=== PATIENT | female | born 1945 | race Two or more races ===

== ENCOUNTER 2025-03-14 09:40 | Emergency (ER) | payer MEDICARE, SELFPAY ==
--- NOTE | 2025-03-14 09:50 | EKG_ITS ---
[facility] Test Date: 2025-03-14 Pat Name: HEATHER CRUZ Department: Room: - Gender: Female Management Planner: : 1945 Requested By: Leonard Bardales (KENNETH) Order Number: [id number] Reading MD: Leonard Bardales (RENEWALS SPECIALIST) Measurements Intervals Badger Rate: 98 P: 31 FL: 158 QRS: 83 QRSD: 127 T: 53 QT: 381 QTc: 487 Interpretive Statements SINUS RHYTHM WITH OCCASIONAL VENTRICULAR PREMATURE COMPLEXES WITH OCCASIONAL SUPRAVENTRICULAR PREMATURE COMPLEXES POSSIBLE RIGHT VENTRICULAR CONDUCTION DELAY [RSR (QR) IN V1/V2] MODERATE ST DEPRESSION [0.05+ mV ST DEPRESSION] No previous ECG available for comparison /[id number]/[email or web address]/[id number].pdf
[2025-03-14 09:55] VITALS: BP 159/92; PULSE 99; TEMP 36.9; O2SAT 93; BMI 32.8
--- NOTE | 2025-03-14 10:10 | XR_ITS ---
Examination: AP chest single view TECHNIQUE: AP portable upright chest single view Date and time: March 14, 2025 1027 hours Comparison November 12, 2013 INDICATIONS: Diagnosis COPD or shortness of breath today. FINDINGS: Moderate hyperexpansion Significant pneumonia left base Normal heart size Prominent osteopenia IMPRESSION: Significant pneumonia lipase
--- NOTE | 2025-03-14 10:10 | PD.EDRME ---
Rapid Medical Screening Exam RME Arrival date/time: 03/14/25 09:40 79-year-old female with history of COPD presents the emergency department for complaints of shortness of breath and chest pain Chief Complaint: Shortness of Breath/Dyspnea Vital signs: Vital Signs Temperature 98.5 F 03/14/25 09:55 Pulse Rate 99 03/14/25 09:55 Blood Pressure 159/92 H 03/14/25 09:55 Pulse Oximetry (%) 93 L 03/14/25 09:55 Oxygen Delivery Method Room Air 03/14/25 09:55
[2025-03-14 10:44] LABS: Basophils # (Auto) 0.1 Thou/mm3 (0.0-0.2); Basophils % (Auto) 1 % (0-2.5); Eosinophils # (Auto) 0.1 Thou/mm3 (0.0-0.5); Eosinophils % (Auto) 1 % (0-10); Hematocrit 38.3 % (36.0-46.0); Hemoglobin 12.7 g/dL (12.0-16.0); Immature Granulocytes % (Auto) 3 % (0-0); Immature Granulocytes Auto 0.28 Thou/mm3 (0.00-0.00); Lymphocytes # (Auto) 1.5 Thou/mm3 (1.0-4.8); Lymphocytes % (Auto) 14 % (10-50); Mean Corpuscular HGB Conc 33.2 g/dl (31.0-37.0); Mean Corpuscular Hemoglobin 30.5 pg (25.0-35.0); Mean Corpuscular Volume 92 fL (80-100); Monocytes # (Auto) 1.6 Thou/mm3 (0.0-0.8); Monocytes % (Auto) 15 % (0-12); Neutrophils # (Auto) 7.3 Thou/mm3 (1.8-7.7); Neutrophils % (Auto) 67 % (37-80); Nucleated Red Blood Cell % 0 /100 WBC (0); Platelet Count 209 Thou/mm3 (140-440); RDW Standard Deviation 50.8 fL (36.4-46.3); Red Blood Count 4.16 Miln/mm3 (4.00-5.20); White Blood Count 10.7 Thou/mm3 (3.6-11.0)
[2025-03-14 11:01] LABS: B-Type Natriuretic Peptide 64 pg/mL (0-100)
[2025-03-14 11:04] LABS: Alanine Aminotransferase 25 U/L (10-49); Albumin, Serum 4.5 gm/dL (3.4-4.8); Albumin/Globulin Ratio 1.3 (1.2-2.2); Alkaline Phosphatase 77 U/L (46-116); Anion Gap 12 (7-16); Aspartate Amino Transferase 24 U/L (0-34); BUN/Creatinine Ratio 13 Ratio (12-20); Bilirubin,Total 1.9 mg/dL (0.3-1.2); Blood Urea Nitrogen 10 mg/dL (9-23); Calcium 9.9 mg/dL (8.3-10.6); Calcium (Corrected) 9.9 mg/dL (8.5-10.1); Carbon Dioxide 20.8 mMol/L (20.0-31.0); Chloride 102 mMol/L (98-107); Creatinine (Component) 0.8 mg/dL (0.6-1.3); Estimated Creatinine Clearance 58.7 mL/min (>60); Globulin 3.5 gm/dL (2.3-3.5); Glucose 127 mg/dL (74-106); Osmolality,Calculated 271 (275-295); Potassium 3.6 mMol/L (3.4-5.1); Sodium 135 mMol/L (136-145); Troponin I < 0.020 ng/mL (0.0-0.045); eGFR > 60 See Note
[2025-03-14 11:28] LABS: INR 1.1 (0.9-1.3); Partial Thromboplastin Time 36.2 Seconds (22.0-36.0); Prothrombin Time 12.4 Seconds (9.0-12.2)
[2025-03-14 13:33] VITALS: BP 156/82; PULSE 101; RESP 19; TEMP 36.9; O2SAT 96
[2025-03-14 13:39] VITALS: BP 169/123; PULSE 91; RESP 24; TEMP 36.9; O2SAT 96
--- NOTE | 2025-03-14 13:47 | EDNOTE_ITS ---
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 Patient states she denies any fever, states the cough is both day and nighttime. During the course of the exam the patient exhibited a coarse wet nonproductive cough. Patient has a history of smoking but quit decades ago. Patient currently resides in [place] is visiting her family members here. Patient has a history of hypothyroidism and hypertension. Currently chest pain-free. RME / HPI RME / HPI narrative: 03/14/25 09:40 79-year-old female with history of COPD presents the emergency department for complaints of shortness of breath and chest pain Related Data Previous Rx's ?Medication ?Instructions ?Recorded levofloxacin 750 mg tablet 750 mg PO Q24H 10 days #10 tabs 03/14/25 prednisone 20 mg tablet See Taper PO BID 3 days #6 t abs 03/14/25 Allergies Allergy/AdvReac Type Severity Reaction Status Date / Time codeine Allergy Unknown Verified 03/14/25 09:44 Penicillins Allergy Unknown Verified 03/14/25 09:45 Review of Systems Review of Systems Narrative Review of Systems: GEN: No fever, no chills, no weight loss EYES: No discharge, no visual changes, no pain HEENT: No ear pain, no congestion, no sore throat PULM: + shortness of breath, + cough, no congestion CV: + chest pain, no dyspnea on exertion, no palpitations GI: No nausea, no vomiting, no diarrhea, no pain, no constipation : No frequency, no urgency, no dysuria MUSC/SKEL: No joint pain, no back pain SKIN: No rash PSYCH: No hallucinations, no depression HEME/LYMPH: No easy bleeding or bruising tendencies NEURO: No weakness, no headache Past Medical History Past Medical History CARDIAC: Positive Hypertension; Negative Congestive Heart Failure RESPIRATORY: Positive Chronic Obstructive Pulmonary Disease (COPD) GENITOURINARY: Negative Renal Disease ENDOCRINE: Positive Hypothyroidism; Negative Diabetes Mellitus Type 1 or Diabetes Mellitus Type 2 OTHER HISTORY: Positive Blood Transfusions Social History SMOKING STATUS: Never smoker ED Exam Narrative Physical exam: [General: Obese not in any acute distress Head normocephalic HEENT: Within acceptable limits Neck is supple nontender Chest equal chest rise nontender to palpation Respiratory: Expiratory crackles auscultated in the left lateral bases. Clear in the upper lobes. No wheezing CV: Rate rhythm is regular no murmurs rubs or clicks Abdomen is distended secondary to body habitus soft nontender no masses positive bowel sounds all 4 quadrants Back: No CVA tenderness no spinous process tenderness from cervical spine thoracic and lumbar spine Skin: Intact no petechiae rash induration ulceration or crepitus Extremities: Moving all extremity against resistance cap refill less than 2 seconds neurosensory intact. No lower extremity edema. Neuro: Awake alert oriented x3 Glascow coma 15 no focal deficits] Course Course Course Narrative: Reassessment at 1452, the patient is maintaining oxygen saturations of 92% or greater while asleep on room air patient be discharged home with pneumonia started on Levaquin and steroids. Quality Measures none Orders Category Date Time Status Bedside COVID-19 Antigen Test NOW Care 03/14/25 10:13 Active Bedside Influenza A&B Antigen Test NOW Care 03/14/25 10:13 Completed EKG (ED ONLY) *Do not use* NOW Care 03/14/25 09:50 Completed Insert IV NOW Care 03/14/25 13:55 Completed EKG (ED Only) Stat Exams 03/14/25 09:50 Draft XR chest 2V Stat Exams 03/14/25 10:10 Completed B-Type Natriuretic Peptide Stat Lab 03/14/25 10:20 Completed CBC Stat Lab 03/14/25 10:20 Completed Comprehensive Metabolic Panel Stat Lab 03/14/25 10:20 Completed Magnesium Stat Lab 03/14/25 10:20 Completed Partial Thromboplastin Time Stat Lab 03/14/25 10:20 Completed Prothrombin Time with INR Stat Lab 03/14/25 10:20 Completed Thyroid Stimulating Hormone Stat Lab 03/14/25 10:20 Completed Troponin I Stat Lab 03/14/25 10:20 Completed Albuterol/Ipratr Rt Maral [Duoneb Rt Maral] Med 03/14/25 13:39 Discontinued 3 ml INH X1 ONE cefTRIAXone/D5w 1gm IV premix [Rocephin/D5w 1gm IV Med 03/14/25 13:40 Discontinued premix] 1 gm in 50 ml IV X1 hydrALAZINE INJ [Apresoline Inj] Med 03/14/25 13:42 Discontinued 10 mg IVP X1 ONE Vital Signs Vital signs: Vital Signs Temperature 98.5 F 03/14/25 09:55 Pulse Rate 99 03/14/25 09:55 Blood Pressure 159/92 H 03/14/25 09:55 Pulse Oximetry (%) 93 L 03/14/25 09:55 Oxygen Delivery Method Room Air 03/14/25 09:55 Discharge Plan Plan Patient Disposition: HOME (Self Care) Patient condition on transfer: Stable Prescriptions/Referrals Prescriptions/Med Rec: New levofloxacin 750 mg tablet 750 mg PO Q24H 10 Days Qty: 10 0RF prednisone 20 mg tablet See Taper PO BID 3 Days Qty: 6 0RF Taper: Prednisone Taper 20 mg DAILY for 2 Days and 0 Hour 10 mg DAILY for 2 Days and 0 Hour 5 mg DAILY for 7 Days and 0 Hour Referrals: NAKIA VICTOR [Other] - In 1 week Problem List Clinical Impression: Community acquired pneumonia Patient/Caregiver Discharge Instructions Education Materials: Preventing Pneumonia, Treating Pneumonia Print Language: Nepalese Stand Alone Forms: Jolynn Award Info., Patient Portal Info Letter, Work/School Release 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 Lab Interpretation Labs: interpreted by me Lab(s) interpretation(s): CBC showed no acute leukocytosis anemia thrombocytopenia Coags show PT of 12.4 INR 1.1 PTT of 36.2 CMP shows sodium 135 glucose 127 no other electrolyte imbalances renal impairment. T. bili at 1.9 no transaminitis's. Troponin is negative BNP is within acceptable limits Imaging Imaging interpretation: interpreted by me Provider imaging interpretation(s): Chest x-ray shows a left lower pneumonia. Medication Administration(s) none Medication Administration History Discontinued Medications Albuterol/Ipratropium (Albuterol/Ipratropium (Duoneb) Rt Maral 3 Ml Nebu) 3 ml INH X1 ONE Stop: 03/14/25 13:40 Last Admin: 03/14/25 14:15 Dose: 3 ml Documented By: Hydralazine HCl (Hydralazine Inj 20 Mg/Ml Vial) 10 mg IVP X1 ONE Stop: 03/14/25 13:43 Last Admin: 03/14/25 13:54 Dose: Not Given Documented By: ARLIN Non-Admin Reason: Change of Condition Ceftriaxone Sodium/Dextrose (Rocephin/D5w 1gm Iv Premix) 1 gm in 50 mls @ 100 mls/hr IV X1 ONE Stop: 03/14/25 14:09 Last Infusion: 03/14/25 14:15 Dose: Infused Documented By: Admin: 03/14/25 13:49 Dose: 100 mls/hr Documented By: ARLIN Diagnosis Differential diagnosis: Pneumonia CHF COPD sepsis
[2025-03-14] MEDS: cefTRIAXone/D5w 1gm IV premix 1 GM/50 ML BAG IV (13:49)
[2025-03-14 13:54] VITALS: BP 156/82; PULSE 81
[2025-03-14] MEDS: ALBUTEROL/IPRATROPIUM (Duoneb) RT SOL 3 ML NEBU INH (14:15)
[2025-03-14 14:19] VITALS: PULSE 83; RESP 19; O2SAT 97
[2025-03-14 14:23] LABS: Thyroid Stimulating Hormone 6.21 uIU/mL (0.55-4.78)
== END 2025-03-14 15:06 | disposition home or self-care (01) ==
PROVIDERS: Nurse Practitioner Primary Care; Emergency Provider Family Medicine
DX: J44.0 Chronic obstructive pulmonary disease with (acute) lower respiratory infection (principal); J18.9 Pneumonia, unspecified organism; I49.3 Ventricular premature depolarization; I10 Essential (primary) hypertension; Z87.891 Personal history of nicotine dependence
CPT/HCPCS: 36415; 71046; 80053; 83735; 83880; 84443; 84484; 85025; 85610; 85730; 87400; 87811; 93005; 94640; 96365; 99284; A9270; J0696